=== PATIENT | male | born 1990 | race Caucasian/White ===

== ENCOUNTER 2017-01-14 21:20 | Emergency (ER) | payer MEDICAID ==
[~2017-01-14] VITALS: Ht 175.3 cm; Wt 79.4 kg
[~2017-01-14 21:20] MED LIST: DIVA500T4; LEVE500T3
[2017-01-15 01:35] LABS: Basophils # (auto) 0.1 uL; Basophils % (auto) 0.6 % (0.0-2.0); Eosinophils # (auto) 0.1 uL; Hematocrit 44.6 % (41.0-53.0); Hemoglobin 14.3 g/dL (13.5-17.5); Lymphocytes # (auto) 4.1 uL; Lymphocytes % (auto) 26.9 % (10.0-50.0); Mean Corpuscular Hemoglobin 29.4 pg (28.0-32.0); Mean Corpuscular Volume 91.9 fL (80.0-100.0); Mean Platelet Volume 7.9 fL (7.4-10.4); Monocytes # (auto) 0.8 uL; Monocytes % (auto) 5.2 % (0.0-12.0); Neutrophils # (auto) 10.1 uL; Neutrophils % (auto) 66.3 % (37.0-80.0); Platelet Count (auto) 319 10^3/uL (140-450); Red Cell Distribution Width 13.4 % (11.6-16.0); White Blood Cell 15.3 10^3/uL (4.4-10.8)
[2017-01-15 01:37] LABS: Albumin 4.3 g/dL (3.4-5.0); Anion Gap 8 (5-15); Blood Urea Nitrogen 15 mg/dL (7-18); Calcium 8.6 mg/dL (8.5-10.1); Carbon Dioxide 24 mmol/L (21-32); Chloride 108 mmol/L (98-107); Glucose 99 mg/dL (74-106); Potassium 3.1 mmol/L (3.5-5.1); Sodium 140 mmol/L (136-145)
[2017-01-15 01:38] LABS: Aspartate Aminotransferase 28 U/L (15-37); BUN/Creatinine Ratio 14.9; GFR African American 116 mL/min; GFR Non-African American 96 mL/min
[2017-01-15 01:41] LABS: Alkaline Phosphatase 93 U/L (45-117); Bilirubin, Total 0.6 mg/dL (0.2-1.0); Total Protein 7.3 g/dL (6.4-8.2)
[2017-01-15] MEDS ORDERED: POTASSIUM CHL 20 Meq TABLET PO ONE (02:45)
[2017-01-15 06:16] VITALS: BP 100/47
== END 2017-01-15 06:31 | disposition home or self-care (01) ==
LOC: ER 21:26
DX: R56.9 Unspecified convulsions (principal); E87.6 Hypokalemia; R42 Dizziness and giddiness; F19.10 Other psychoactive substance abuse, uncomplicated; F17.210 Nicotine dependence, cigarettes, uncomplicated; F12.10 Cannabis abuse, uncomplicated
CPT/HCPCS: 36415; 70450; 72125; 80053; 80320; 82962; 85025; 99285; G0434

== ENCOUNTER 2017-01-17 00:28 | Emergency (ER) | payer MEDICAID ==
[~2017-01-17] VITALS: Ht 177.8 cm; Wt 81.6 kg
[2017-01-17] MEDS ORDERED: LORazepam 2MG/ML-1ML VIAL ONE (03:08)
[2017-01-17] MEDS ORDERED: LORazepam 2MG/ML-1ML VIAL IV ONE (03:45)
[2017-01-17] MEDS ORDERED: LEVETIRACETAM 500 MG/5ML INJ IV ONE (04:33)
[2017-01-17] MEDS ORDERED: LEVETIRACETAM INJ 1,000 MG in SODIUM CHL 0.9% 100 ML IV ONE (04:45)
[2017-01-17 04:54] LABS: Basophils # (auto) 0.1 uL; Basophils % (auto) 0.3 % (0.0-2.0); Eosinophils # (auto) 0.1 uL; Eosinophils % (auto) 0.4 % (0.0-7.0); Hemoglobin 13.3 g/dL (13.5-17.5); Lymphocytes # (auto) 2.2 uL; Lymphocytes % (auto) 12.7 % (10.0-50.0); Mean Corpuscular Hemoglobin 30.4 pg (28.0-32.0); Mean Corpuscular Hgb Conc. 33.3 g/dL (32.0-36.0); Mean Corpuscular Volume 91.4 fL (80.0-100.0); Mean Platelet Volume 7.7 fL (7.4-10.4); Monocytes # (auto) 0.8 uL; Monocytes % (auto) 4.6 % (0.0-12.0); Neutrophils # (auto) 14.1 uL; Platelet Count (auto) 264 10^3/uL (140-450); Red Cell Distribution Width 13.4 % (11.6-16.0); White Blood Cell 17.2 10^3/uL (4.4-10.8)
[2017-01-17 05:28] LABS: Anion Gap 7 (5-15); Aspartate Aminotransferase 22 U/L (15-37); BUN/Creatinine Ratio 18.2; Blood Urea Nitrogen 16 mg/dL (7-18); Calcium 8.4 mg/dL (8.5-10.1); Carbon Dioxide 24 mmol/L (21-32); Chloride 110 mmol/L (98-107); GFR African American 136 mL/min; GFR Non-African American 112 mL/min; Glucose 112 mg/dL (74-106); Potassium 3.7 mmol/L (3.5-5.1); Sodium 141 mmol/L (136-145)
[2017-01-17 05:30] LABS: Salicylate 1.7 mg/dL (2.8-20.0)
[2017-01-17 05:40] LABS: Acetaminophen < 2.0 ug/mL (10-30)
[2017-01-17] MEDS ORDERED: diphenhdrAMINE HCL 50 MG/1 ML VL IM ONE (05:45)
[2017-01-17] MEDS ORDERED: HALOPERIDOL LACTATE 5 MG/ML INJ VIAL IM ONE (05:45)
[2017-01-17 05:53] LABS: Alkaline Phosphatase 86 U/L (45-117); Bilirubin, Total 0.4 mg/dL (0.2-1.0)
[2017-01-17 10:17] LABS: Urine RBC None Seen /hpf (0 - 3)
[2017-01-17 10:36] LABS: Urine Bilirubin Negative (Negative); Urine Blood Negative /uL (Negative); Urine Color Yellow (Yellow); Urine Glucose Normal (Normal); Urine Ketone Negative (Negative); Urine Urobilinogen Normal (Negative)
[2017-01-17 10:37] LABS: Urine Nitrite Negative (Negative)
[2017-01-17 10:38] LABS: Urine Hyaline Cast FEW /lpf (0 - 2); Urine Squamous Epithelial Cell FEW /hpf (<5)
[2017-01-17 13:00] VITALS: BP 108/68
== END 2017-01-17 13:03 | disposition home or self-care (01) ==
LOC: EDBD 00:28 → ER 00:35
DX: F23 Brief psychotic disorder (principal); F32.9 Major depressive disorder, single episode, unspecified; F17.210 Nicotine dependence, cigarettes, uncomplicated
CPT/HCPCS: 36415; 80053; 80156; 80320; 80329; 81001; 85025; 96372; 96374; 99284; G0434; J1200; J1630; J1953; J2060